=== PATIENT | male | born 1985 | race Caucasian/White ===

== ENCOUNTER 2020-03-18 12:37 | Emergency (ER) | payer SELFPAY ==
[2020-03-18 12:39] VITALS: BP 138/99; PULSE 87; RESP 15; TEMP 37.3; O2SAT 100; BMI 28.3
--- NOTE | 2020-03-18 12:57 | ED.DCSUM_ITS ---
- ER Visit Summary Date of Service: 03/18/20 Chief Complaint: [Fever and body aches History of Present Illness: The patient is a 34 M [presents to the emergency department with symptoms for 5 days. Patient states that 5 days ago he just felt rundown like he had no energy. Intermittently he has had low-grade temps up to 99. He has had body aches and headaches. He has had a mild runny nose. He is also complained of some mild dysuria at times. He has had some mild urinary frequency. 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 Patient has had no known exposures to anybody with COVID-19. Denies vomiting or di arrhea. He denies any significant rashes other than he was gardening recently and noticed small amount of rash to his right knee and anterior abdomen. Patient's was concerned about meningitis.] Physical Examination: [HEENT-PERRLA, EOMI. Cranial nerves II through XII grossly intact. TMs clear. Mucous membranes moist. No adenopathy. Cardiovascular-regular rate and rhythm without murmur or ectopy Lungs-clear to auscultation, chest wall stable without crepitus or subcu emphysema Abdomen-normoactive bowel sounds, soft, nontender, no rebound or rigidity, no peritoneal signs. Neuro [id number] and heel perez testing within normal limits, negative Romberg, negative pronator, fundi benign. Negative Kernig's and negative Brudzinski sign. There is no nuchal rigidity. Extremities-intact ?4, normal range of motion, normal pulses, atraumatic. Patient has a linear looking erythematous and slightly vesicular rash to the anterior right knee. Patient has small lesions also on the right anterior abdomen. Rash is typical of a Roseann dermatitis] Test Results: [COVID exam was negative. Patient had a urinalysis that was normal.] Emergency Department Course and Treatment: [Patient received Toradol 60 mg IM.] Treatment Plan: [Patient advised to self quarantine for 14 days. Patient will be given a prescription for naproxen for body aches. He understands I cannot completely rule out COVID 19 and is early on in the disease process or been false negatives. No other etiology is noted for his symptomatology although he understands other viruses can cause similar illness.] Disposition: [Discharged home in stable condition] Impression: [Viral URI] This note was generated with [employer] dictation software. It may contain incorrect words, spelling, and punctuation that were not noted in review of the chart prior to signing ED Disposition - Plan for ED Patient: Referrals: Care Physician,No Primary [Primary Care Provider] -
--- NOTE | 2020-03-18 13:16 | ED.RN ---
PT UNABLE TO PROVIDE URINE SAMPLE, OK PER PROVIDER TO GIVE PT WATER.
[2020-03-18 14:10] LABS: Bacteria 0 SEEN /hpf (None Seen); Mucous, Urine 0 SEEN /hpf (<or=2+); Red Blood Cells-Urine 0 SEEN /hpf (0-5); Squamous Epithelial Cells - UA 0 SEEN /hpf (0-5); White Blood Cells 0 SEEN /hpf (0-5)
[2020-03-18 14:11] LABS: Color, Urine Yellow (Yellow); Glucose, Dipstick Normal (Normal); Ketone-Dipstick Negative (Negative); Leukocyte Esterase-Dipstick Negative /ul (Negative); Nitrite-Dipstick Negative (Negative); Occult Blood-Urine Negative /ul (Negative); Protein-Dipstick Negative (Negative); Urine Bilirubin Dipstick Negative (Negative); Urine Clarity Clear (Clear); Urine Urobilinogen Normal (Normal); Urine pH 6.5 (5.0 - 8.0)
[2020-03-18] MEDS: Ketorolac 60 MG/2 ML Vial IM (14:15)
[2020-03-18 14:19] VITALS: BP 113/77; PULSE 80; RESP 16; TEMP 36.8; O2SAT 100
[2020-03-18 14:21] LABS: Probe Check PASS; Specimen Processing Control PASS
--- NOTE | 2020-03-18 14:44 | ED.DEP ---
ED Disposition - Plan for ED Patient: Instructions: ED URI Viral Prescriptions: Naproxen [Naprosyn] 500 mg PO BID PRN #20 tab Transmission Status: Pending to [employer] [facility] #[id number] Referrals: Care Physician,No Primary [Primary Care Provider] - Daniel Hernandes MD [STAFF PHYSICIAN] - 5-7 Days
== END 2020-03-18 14:55 | disposition home or self-care (01) ==
PROVIDERS: Emergency Provider Emergency Medicine
DX: J06.9 Acute upper respiratory infection, unspecified (principal)
CPT/HCPCS: 81001; 87635; 96372; 99282; U0003

== ENCOUNTER 2020-04-02 14:13 | Emergency (ER) | payer MEDICAID, SELFPAY ==
[2020-04-02 14:14] VITALS: BP 127/84; PULSE 88; RESP 17; TEMP 36.7; O2SAT 97; BMI 28.4
--- NOTE | 2020-04-02 14:33 | RAD_ITS ---
STUDY: X-RAY CHEST REASON FOR EXAM: Male, 34 years old. FEVER, CHILLS X 3 DAYS, SHORTNESS OF BREATH TODAY TECHNIQUE: Single AP portable view of the chest. COMPARISON: May 14 2016 FINDINGS: The lungs are clear and expanded. There is no demonstrated pleural abnormality. Normal size heart. Normal mediastinum and laurie. Normal visualized pulmonary arteries. Normal visualized aortic arch and descending thoracic aorta. Normal visualized thoracic spine. Normal visualized ribs, clavicles, and shoulders. There is no demonstrated abnormality of the visualized soft tissue structures of the upper abdomen. RAD/Chest 1 View (Portable) IMPRESSION: Normal x-ray examination of the chest. Electronically Signed: Herbert Grossman MD at 16:02 EDT , Service support ,
--- NOTE | 2020-04-02 14:33 | ED.VIS.GEN ---
History of Present Illness Chief Complaint: Fever Informant: Patient Onset: 2 Timing: Waxes and wanes Quality: 99.x Current Severity: Mild Maximum Severity: Moderate Worsened by: unk Relieved by: tylenol Associated Symptoms: CORTÉS, myalgias, headaches off/on, minor [employer] cough, congestion Narrative: Patient states he had similar symptoms for a week or 2 recently, he was seen and had a negative COVID-19 test, but was advised that it might be a false negative and that he should still quarantine himself for 14 days. He did so, and then in the middle of this past week on Thursday and , he was doing better cannot of quarantine, do things around the house, had contact with his family but no one that was ill that he knows of. Then within the last 3 days or so, he has started feeling more of the similar symptoms. Fevers and chills, myalgias, headaches, malaise, decreased appetite but normal sense of smell and taste for him, and dyspnea with exertion, he noticed it when he was taking a walk around the block. No significant dyspnea with walking from room to room in the house or at rest. He states at times it felt like wheezing but it was not wheezing every time. He has no history of asthma that he knows of. 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 Past Medical History - Allergies and Home Meds Allergies/Adverse Reactions: Allergies No Known Allergies Allergy (Verified 04/02/20 14:14) Primary Care Physician: Care Physician,No Primary [Primary Care Provider] - Past Medical History: None Lives: Spouse/ Significant Other Smoking Status: Never smoker Review of Systems General: Reports: Chills, Fever, Malaise. Denies: Sweats Eyes: Denies: Visual changes - bilaterally, Diplopia ENT: Reports: Rhinorrhea, Sore throat. Denies: Bilateral ear pain Cardiovascular: Denies: Chest pain, Palpitations Respiratory: Reports: Cough, Dyspnea on exertion. Denies: Sputum, Orthopnea Gastrointestinal: Denies: Abdominal pain, Nausea, Vomiting, Diarrhea, Melena, Hematochezia Genitourinary: Denies: Dysuria, Hematuria, Frequency Musculoskeletal: Reports: Myalgias, Neck pain. Denies: Back pain, Swelling Skin: Denies: Rash, Wounds Neurological: Reports: Headache. Denies: Weakness, Numbness Physical Exam Vital Signs/Narrative: Vital Signs Temp Pulse Resp BP Pulse Ox 04/02/20 14:14 98.1 F 88 17 127/84 H 97 Inital Vital Signs reviewed: Yes General: Well nourished, Well developed, No Acute Distress - Conversive in full sentences Head: Normocephalic, Atraumatic Eyes: Perrl, EOMI ENT: Moist mucous membranes, No rhinorrhea, - - POP clear, no erythema or asymmetry Neck: Supple, Nontender, No lymphadenopathy Cardiovascular: Regular rate, Regular rhythm, No murmurs. Negative for: Tachycardia Respiratory: No distress, CTA bilaterally, Chest nontender Abdomen: Soft, Nontender, Nondistended, Normal bowel sounds Back: Nontender, Normal Inspection Extremities: Nontender, No edema. Negative for: Calf Tenderness Skin: Normal color, No rash, No Trauma Neurological: Alert, Oriented x3, Cranial nerves II-XII grossly intact, Normal Strength, Normal Sensation, Normal Gait Psychological: Normal affect, Normal Mood Diagnostic/Tx/Re-eval Clinical Impression(s) from Imaging Studies Chest X-Ray 04/02/20 14:33 IMPRESSION: Normal x-ray examination of the chest. Electronically Signed: Herbert Grossman MD at 16:02 EDT , Service support , Laboratory Tests 04/02/20 Range/Units 15:15 COVID-19 (ROBERT) Negative (Not Detect) ORDERED: RP PANEL Procedure Result Verified RESPIRATORY PANEL MOLECULAR Preliminary 04/02/20-181 ADENOVIRUS Not Detected HUMAN METAPHNEUMO Not Detected INFLUENZA A Not Detected INFLUENZA A (SUBTYPE H1) Not Detected INFLUENZA A (SUBTYPE H3) Not Detected INFLUENZA B Not Detected PARAINFLUENZA 1 Not Detected PARAINFLUENZA 2 Not Detected PARAINFLUENZA 3 Not Detected PARAINFLUENZA 4 Not Detected RHINOVIRUS Not Detected RSV A Not Detected RSV B Not Detected END OF REPORT - Medical Decision Making The testing I am able to perform here the patient was willing to wait for. Chest x-ray, viral respiratory panel, and COVID-19 tests are all negative. He is reassured, however I do not have an answer for him. I do know that his vital signs are normal and his exam is unremarkable, and I feel he is safe to be discharged home, however I feel obligated to tell him that the possibility of a false negative COVID-19 test is again possible. It is even possible to have it without fevers, his have been low-grade and not high. Current recommendations from the CDC are to go back to work after you have had symptoms for 10 days, and fever free without antipyretic for 24 hours at least, and symptoms are improving. These have been relayed to him. Supportive care advised and close outpatient follow-up. It is certainly possible that he could have a respiratory virus other than the ones that we tested for which is not entirely comprehensive. ED Disposition - Plan for ED Patient: Disposition: Home or Assisted Living Diagnosis: URI (upper respiratory infection) Instructions: ED URI Viral Referrals: Estrellita Everett MD [STAFF PHYSICIAN] - 1 Week if not improving (For primary care) Additional Instructions: Current recommendations from the CDC are to go back to work after you have had symptoms for 10 days, and fever free without acetaminophen or ibuprofen for 24 hours at least, and symptoms are improving.
[2020-04-02 15:31] VITALS: BP 127/84; PULSE 88; RESP 17; TEMP 36.7; O2SAT 97
[2020-04-02 16:00] VITALS: BP 126/70; PULSE 101; RESP 16; TEMP 37; O2SAT 98
[2020-04-02 17:00] VITALS: BP 111/75; PULSE 71; RESP 17; O2SAT 97
[2020-04-02 18:00] VITALS: BP 124/74; PULSE 89; RESP 17; TEMP 36.8; O2SAT 98
[2020-04-02 18:38] VITALS: BP 124/74; PULSE 89; RESP 16; O2SAT 98
== END 2020-04-02 18:56 | disposition home or self-care (01) ==
PROVIDERS: Emergency Provider Emergency Medicine
DX: J06.9 Acute upper respiratory infection, unspecified (principal)
CPT/HCPCS: 71045; 87633; 87635; 94799; 99282; U0003

== ENCOUNTER 2020-09-03 06:00 | Day surgery (SDC) | payer MEDICAID, SELFPAY ==
[2020-09-03] VITALS (10 sets, daily range): BP systolic 88–132; BP diastolic 64–77; PULSE 62–86; RESP 12–18; TEMP 36.3–36.8; O2SAT 98–100; BMI 28.8
[2020-09-03] MEDS: Lactated Ringers 1,000 ML 100 ML IV (06:56)
[2020-09-03] MEDS: Cefazolin 2 GM in 0.9% Normal Saline 100 ML IV (07:25)
[2020-09-03] MEDS: morphine PF (epidural) 5 MG/10 ML Vial (07:45)
[2020-09-03] MEDS: Epinephrine (1 mg/ml) 1 MG/ML VIAL (07:45)
[2020-09-03] MEDS: Lidocaine 1%/Epi 1:200 (30ml) 30 ML AMPUL (07:45)
--- NOTE | 2020-09-03 08:26 | PCM.OP.PRO ---
Procedure Report Date of Procedure: 09/03/20 Preoperative diagnosis: Left knee complex tear medial meniscus Postoperative diagnosis : Same Procedure: Diagnostic video arthroscopy, partial medial meniscectomy left knee Surgeon: Dr. Willam Cornell Anesthesia: Dr. Gilberto crna General Special medications: Ancef 2 g IV Applications: None EBL: Minimal Indications for surgery: Patient is a 35 -year-old male with a long-standing history of left knee pain. Patient failed adequate nonoperative treatment for the knee pain. MRI findings discussed with patient. Due to persistent symptoms they wish to proceed with knee arthroscopy. Findings: Intraoperative findings were consistent with her preoperative history, physical, radiographic exam. Complex tear of the posterior horn of the medial meniscus extending to the midportion which was not repairable. Pictures taken throughout. He underwent left knee partial medial meniscectomy Details of procedure: Patient was taken to the OR transfer to the OR table. Nonoperative limb was appropriately padded, DANA hose and SCD applied. Patient was placed under the anesthetic agent. Operative knee was examined. No signs of infection. Operative upper thigh was well-padded and ultimately placed in a well-padded thigh perez. Operative lower extremity was prepped and draped in usual orthopedic sterile fashion for the procedure. Local anesthetic agent was sterilely injected into the proposed arthroscopic portals. Lateral portal was established with a knife. Took us through skin only. Dull trocar took us into the joint. The scope was placed through the lateral portal. Medial portal and ultimately established using a spinal needle followed by a knife through skin, followed by a dull trocar into the joint. Probe was placed to the medial portal. Patellofemoral joint: No significant arthritis was noted. Patella tracked nicely. No significant plica noted. Medial and lateral gutter: No loose bodies or pathology noted. Intercondylar notch: ACL appeared within normal limits. Nice resting tension. No loose bodies or cystic changes noted. Medial compartment: Chondral surfaces were within normal limits. Complex tear of the medial meniscus noted extending from the root to the midportion. There was a displaced fragment from the midportion underneath the meniscus into the gutter. This was reflected with a probe. Meniscus was not repairable. Partial meniscectomy was carried out with a forward biter, curved biters, shaver. This brought us back to stable tissue. Pictures were taken throughout. Lateral compartment: Chondral surfaces are within normal limits. No obvious lateral meniscus tear noted, and compartment fully probed Posterior medial compartment: No loose bodies or pathology noted. Posterior lateral compartment: No loose bodies or pathology noted. Arthroscopic pictures were taken and saved throughout the procedure. Knee was drained of excess fluid. Arthroscopic instruments were removed. Arthroscopic portals closed with simple sutures of 4-0 nylon. Knee joint injected with a combination of local anesthetic and Duramorph. sterile bandage was applied. Patient was transferred to the room bed and recovery room in satisfactory condition. They will be discharged to home when stable, follow-up in the office in 7-10 days. Patient and the family understand discharge instructions, all of their questions answered. This note was generated with [employer] dictation software. It may contain incorrect words, spelling, and punctuation that were not noted in checking the note before signing.
[2020-09-03] MEDS: HYDROcodone Bitartrate/Apap 5/325 Tablet PO (10:07)
== END 2020-09-03 10:37 | disposition home or self-care (01) ==
LOC: SDC 06:02 → AC 06:02
PROVIDERS: Referring Provider Orthopaedic Surgery; Visit Provider Orthopaedic Surgery
PROC: (CPT 29870; principal; 2020-09-03 07:10)
DX: S83.242A Other tear of medial meniscus, current injury, left knee, initial encounter (principal); X50.1XXA Overexertion from prolonged static or awkward postures, initial encounter; Y93.67 Activity, basketball; Y92.9 Unspecified place or not applicable; Y99.9 Unspecified external cause status
CPT/HCPCS: 01400; 29881; 87426; C9803; J7120; J2405

== ENCOUNTER → 2020-09-07 13:28 | Outpatient (CLI) | payer MEDICAID, SELFPAY ==
[2020-09-03 06:31] VITALS: BMI 28.8
--- NOTE | 2020-09-07 13:31 | VDLE_ITS ---
Reason For Study: Pain LLE Procedure LEFT Exam performed in department. GSV is normal. Patient sent to ED per Emilia at Dr. Hernandez CFV is compressible, spontaneous, phasic, office. competent, and demonstrates normal A preliminary report was called and/or faxed augmentation. to Emilia. FV is compressible, spontaneous, phasic, competent and demonstrates normal augmentation. POP V is compressible, spontaneous, phasic, competent and demonstrates normal augmentation. T/P Trunk is compressible. PTV is compressible. LT PerV is compressible. Lt SoleusV is dilated and non compressible consistent with acute DVT. Interpretation Summary Acute deep vein thrombosis is noted in the left soleus vein. The remainder of the left lower extremity deep venous system is patent and compressible. Valvular competence appears intact within the proximal deep venous system on the left . The left great saphenous vein appears patent and compressible segmentally. Ordering Physician: Willam Cornell Referring Physician: Willam Cornell Performed By: Gabriella Vanegas, EDSON, RVT
== END ==
PROVIDERS: Referring Provider Orthopaedic Surgery; Visit Provider Orthopaedic Surgery
DX: M79.605 Pain in left leg (principal)
CPT/HCPCS: 93971

== ENCOUNTER 2020-09-07 14:13 | Emergency (ER) | payer MEDICAID, SELFPAY ==
[2020-09-03 06:31] VITALS: BMI 28.8
[2020-09-07 14:14] VITALS: BP 121/93; PULSE 111; RESP 18; TEMP 37.1; O2SAT 95; BMI 28.8
[2020-09-07 15:10] LABS: Absolute Neutrophil Count 4.9 X10^3/uL (2.0-7.7); Basophil# 0.08 X10^3/uL; Basophil% 0.9 % (0-1); Eosinophil# 0.23 X10^3/uL; Eosinophils% 2.6 % (0-5); Hematocrit 46.7 % (40-54); Hemoglobin 16.1 g/dL (13.0-16.5); Lymphocyte % 29.9 % (19-41); Mean Corp Hgb Conc 34.5 g/dL (32-36); Mean Corpuscular Hgb 29.9 pg (27.0-32.0); Mean Corpuscular Volume 86.8 fL (80-94); Mean Platelet Vol. 8.7 fl (6.2-12.0); Monocyte# 0.75 X10^3/uL; Monocyte% 8.6 % (0-10); NRBC Flagged by Analyzer 0 % (0-5); Neutrophil # 4.94 X10^3/uL (2.7-7.7); Neutrophil % 56.7 % (47-70); Platelet Count 242 K/mm3 (150-450); RBC Distribution Width CV 11.8 % (11.6-14.6); RBC Distribution Width SD 37.3 fl (35.1-43.9); Red Blood Count 5.38 M/mm3 (4.6-6.2); White Blood Count 8.7 K/mm3 (4.4-11.0)
[2020-09-07 15:33] LABS: Anion Gap 5 (5-15); BUN 15 mg/dL (7-18); BUN/Creat Ratio 15.2 RATIO (10-20); Calcium,Total 9.1 mg/dL (8.5-10.1); Chloride 105 mmol/L (98-107); Creatinine, Serum 0.99 mg/dL (0.70-1.30); EST Glomerular Filtration Rate 92 mL/min (>60); Est Glom Filt Rate - Afr Amer 111 mL/min (>60); Estimated Creatinine Clearance 118.82 ml/min; Glucose 123 mg/dL (74-106); Potassium 3.8 mmol/L (3.5-5.1); Sodium Level 137 mmol/L (136-145)
[2020-09-07 15:40] LABS: Prothrombin Time (Protime)PT. 12.5 SECONDS (11.7-14.9)
[2020-09-07 15:41] LABS: Partial Thromboplast Time 28.8 Seconds (24.1-36.2)
--- NOTE | 2020-09-07 16:00 | ED.DCSUM_ITS ---
- ER Visit Summary Date of Service: 09/07/20 Chief Complaint: DVT History of Present Illness: The patient is a 35 M who is postop day [address] Willam Cornell for a left meniscus arthroscopy. He had some left calf pain and had an outpatient ultrasound earlier that showed a DVT in his left soleus vein. No history of clots or clotting disorders. He does not take blood thinners. No chest pain or shortness of breath. No history of aneurysm or bleeding. No recent surgeries otherwise. No heavy alcohol use or uncontrolled hypertension. Physical Examination: Afebrile and vital signs unremarkable. Left calf is mildly tender to palpation but otherwise unremarkable. Lungs are clear. Heart is regular. Test Results: CBC, BMP, coags unremarkable. Emergency Department Course and Treatment: Patient has a symptomatic DVT. Nothing to suggest PE. Labs unremarkable. He is low risk. I spoke with Dr. Ridley who was on-call for Dr. Cornell. Okay to start anticoagulation. He does not have a PCP. I spoke with Dr. Camacho and he will follow up with the patient. We will start him on . Call Thursday for follow-up. Risks of bleeding complications were discussed. Symptoms of PE were discussed. Return for any c omplications. Treatment Plan: As above Disposition: Discharge Impression: Left lower extremity DVT This note was generated with [employer] dictation software. It may contain incorrect words, spelling, and punctuation that were not noted in review of the chart prior to signing ED Disposition - Plan for ED Patient: Referrals: Care Physician,No Primary [Primary Care Provider] -
--- NOTE | 2020-09-07 16:02 | ED.DEP ---
ED Disposition - Plan for ED Patient: Instructions: Understanding Deep Vein Thrombosis Prescriptions: Apixaban [Eliquis] 5 mg PO BID 30 Days #74 tab Prescription Printed Referrals: Jerome Camacho III, MD [STAFF PHYSICIAN] -
== END 2020-09-07 16:27 | disposition home or self-care (01) ==
LOC: ED 14:57
PROVIDERS: Emergency Provider Emergency Medicine
DX: I82.402 Acute embolism and thrombosis of unspecified deep veins of left lower extremity (principal); M79.605 Pain in left leg
CPT/HCPCS: 36415; 80048; 85025; 85610; 85730; 93971; 99282

== ENCOUNTER 2023-03-30 18:41 | Emergency (ER) | payer MEDICAID, SELFPAY ==
[2023-03-30 18:43] VITALS: BP 136/93; PULSE 57; RESP 18; TEMP 36.6; O2SAT 99; BMI 27.5
--- NOTE | 2023-03-30 20:39 | EX.ED.DYSGE1 ---
HPI History of Present Illness Chief Complaint: Other, Pain/Inj Detail of Chief Complaint: Posterior right calf pain that started hours prior to presentation Informant: patient Onset/Context/Timing Onset: Hours Context: Sudden Onset Timing: Continuous Quality: Pain Location: Posterior mid calf Current Severity: Mild Maximum Severity: Mild Worsened by: Think specific Relieved by: Nothing Associated Symptoms Associated Symptoms: No associated symptoms and specifically shortness of breath chest pain Narrative Narrative: Patient is a 37-year-old male with prior history of DVT left leg status post meniscus surgery who presents with atraumatic posterior right calf pain. He states he has not been as active. He was sitting prior to putting on his shoes. He felt pain in the calf. The pain has been constant. Nothing truly exacerbates the pain. Nothing alleviates the pain. He denies chest pain or shortness of breath. Prior similar symptoms: Yes (DVT status post meniscus surgery) Recent Illness/Hospitalization: No PFSH PFSH Home Medications multivitamin 1 ea PO DAILY 08/27/20 [History Last Taken Unknown] Allergy/AdvReac Type Severity Reaction Status Date / Time No Known Allergies Allergy Verified 03/30/23 18:42 Social History (Updated 03/30/23 @ 20:[address] Sharif Thomas MD) household members: spouse and children Smoking Status: Never smoker substance use type: does not use ROS ROS ED Constitutional Constitutional ED: Denies chills, fever(s) or subjective Cardiovascular Cardiovascular: Denies chest pain, palpitations or racing heartbeat Respiratory/Chest Respiratory/Chest: Denies cough, dyspnea or dyspnea on exertion Neurologic Neurologic: Denies paresthesias or weakness Hematologic/Lymphatic Hematologic/Lymphatic: Reports systems reviewed and no addt'l complaints, except as documented EXAM Physical Exam Const Vital Signs: 03/30/23 18:43 Temperature 98 F Temperature Source Temporal Pulse Rate 57 L Respiratory Rate 18 Blood Pressure 136/93 H Blood Pressure Mean 107 Pulse Ox 99 Oxygen Delivery Method Room Air Positive well nourished and well developed General Appearance ED: well developed and NAD; Negative for cyanotic, diaphoretic or pallor HEENT Reports moist mucous membranes HEENT Narrative: Head is atraumatic normocephalic. Eyes PERRL and EOMs intact bilaterally Resp normal respiratory effort Cardio regular rate and regular rhythm Extremity normal to inspection Extremity Narrative: There is no asymmetry, swelling, discoloration, leg vein distention, palpable cords or tenderness along the distribution of the deep venous system. General Extremety ED: Negative for edema or tenderness General Extremity: Negative for edema Neuro oriented x3, CN's II-XII intact bilaterally and no sensory deficits noted Sensorium / Orientation: alert Psych mental status grossly normal Skin no rashes or lesions noted, no wounds and skin turgor normal General Skin Exam: elasticity normal; Negative for jaundice or pallor MDM MDM MDM Narrative Medical decision making narrative: As well score for DVT is -1. Since patient is at low risk for DVT D-dimer was ordered. Lab Data Attestation: I reviewed the patient's lab results. Lab results narrative: D-dimer is less than 0.27. Therefore venous duplex is not indicated. Labs: Laboratory Results - last 24 hr 03/30/23 21:12 D-Dimer Quant (PE/DVT) < 0.27 L Discharge Plan Triage Chief Complaint: Other, Pain/Inj Other Complaint: Lower Extremity Injury ED Provider: Sharif Thomas Dx/Rx/DC Orders Clinical Impression: Pain of right calf Instructions: ED RICE Prescriptions: No Action multivitamin 1 EACH tablet 1 ea PO DAILY Primary Care Provider: Jerry Harper Referrals: Care Physician,No Primary [Non-Staff] - Activity Restrictions/Additional Instructions: 1. Apply ice 6-10 times a day for the next 2 to 3 days 2. Take either 3 ibuprofen tablets every 6-8 hours or 2 Aleve tablets every 12 hours for the next 2 to 3 days. Disposition Disposition: Home, Self Care
[2023-03-30 21:55] LABS: D-Dimer Quantitative (DVT/PE) < 0.27 FEU/ug/m (0.27-0.49)
== END 2023-03-30 22:12 | disposition home or self-care (01) ==
PROVIDERS: Emergency Provider Emergency Medicine; PCP Internal Medicine; Visit Provider Emergency Medicine
DX: M79.661 Pain in right lower leg (principal); Z86.718 Personal history of other venous thrombosis and embolism
CPT/HCPCS: 36415; 85379; 99282